=== PATIENT | female | born 1980 | race Caucasian/White ===

== ENCOUNTER 2021-10-02 06:57 | Emergency (ER) | payer BC, SELFPAY ==
[2021-10-02 06:58] VITALS: BP 156/73; PULSE 76; RESP 18; TEMP 37.2; O2SAT 99; BMI 32.6
[2021-10-02 07:01] VITALS: BP 156/78; PULSE 65; RESP 18; TEMP 37.2; O2SAT 97
--- NOTE | 2021-10-02 07:24 | RAD_ITS ---
STUDY: X-RAY CHEST REASON FOR EXAM: Female, 41 years old. cough,sob TECHNIQUE: AP COMPARISON: 09/29/2012 FINDINGS: Left subclavian chest port identified with tip projecting over the upper SVC. The lungs are clear and expanded. There is no demonstrated pleural abnormality. Normal size heart. Normal mediastinum and natalia. Normal visualized pulmonary arteries. Normal visualized aortic arch and descending thoracic aorta. Normal visualized thoracic spine. Normal visualized ribs, clavicles, and shoulders. There is no demonstrated abnormality of the visualized soft tissue structures of the upper abdomen. RAD/Chest 1 View (Portable) IMPRESSION: No airspace consolidation or pleural effusion. Electronically Signed: Pancho Lind MD ([place]) at 8:42 EST , Service support ,
--- NOTE | 2021-10-02 07:24 | ED.VIS.DYS ---
HPI History of Present Illness Chief Complaint: Shortness of Breath Informant: patient Onset/Context/Timing Onset: Days (1-2) Context: gradual and onset Quality: Positive for Wheezing Current Severity: Mild Maximum Severity: Mild Worsened by: Coughing Relieved by: Not Relieved By Albuterol Associated Symptoms cough; Negative for fever, sore throat, clear sputum, white sputum, yellow sputum or green sputum Chest Pain: Positive for None Narrative Narrative: Coughing w/o sputum, some lung burning and mild sob when not coughing, mild wheezing, did not improve with a nebulizer tx of albuterol at home. Staying at a hotel locally, visiting her kids, and has been sitting in hot tub at hotel, which bleached her swimming suit and smelled like it had a high level of chemicals in it, although did not get actively worse while smelling the chemicals. Now having trouble coughing but has no other symptoms other than mild dyspnea. Does not feel like she is sick. States she has chronic lung issues from chemotherapy tx for colon ca, which is in remission. No recent leg swelling. [facility] Medical History Colon cancer DDD (degenerative disc disease) Port-A-Cath in place Home Medications NK 10/02/21 [History Last Taken Unknown] Allergy/AdvReac Type Severity Reaction Status Date / Time sulfamethoxazole Allergy Unknown Verified 10/02/21 07:00 [From ] trimethoprim [From ] Allergy Unknown Verified 10/02/21 07:00 codeine AdvReac Other Verified 10/02/21 07:00 Surgical History (Updated 10/02/21 @ 07:04 by Bertha Fields) History of cholecystectomy Hx of tubal ligation Social History Smoking Status: Current every day smoker tobacco type: cigarettes ROS ROS ED Constitutional Constitutional ED: Denies chills or fever(s) Eyes Eyes: Denies change in vision or diplopia ENT ENT ED: Denies rhinorrhea or sore throat Cardiovascular Cardiovascular: Denies chest pain or palpitations Respiratory/Chest Respiratory/Chest: Reports as per HPI, cough, dyspnea and wheezing Gastrointestinal Gastrointestinal: Reports other Details: mild chronic abd pains since colon cancer ; Denies diarrhea, nausea or vomiting Genitourinary Genitourinary ED: Denies dysuria or hematuria Musculoskeletal Musculoskeletal: Denies back pain or neck pain Integumentary Denies abscess or rash Neurologic Neurologic: Denies headache(s), paresthesias or weakness Psychiatric Psychiatric: Denies anxiety or suicidal thoughts EXAM Physical Exam Const Vital Signs: 10/02/21 06:58 10/02/21 07:01 10/02/21 08:45 Temperature 98.9 F 98.9 F Temperature Source Oral Oral Pulse Rate 76 65 Respiratory Rate 18 18 Respiratory Effort Normal Non-Labored Respiratory Depth Normal Respiratory Pattern Normal Blood Pressure 156/73 H 156/78 H Blood Pressure Mean 100 104 Pulse Ox 99 97 Oxygen Delivery Method Room Air Room Air Room Air Positive well nourished, well developed and obese General Appearance ED: well developed and NAD Nutritional Appearance: obese HEENT Reports moist mucous membranes normocephalic and atraumatic Eyes PERRL and EOMs intact bilaterally Neck full ROM and supple Resp normal respiratory effort and clear to auscultation bilaterally Resp Narrative: conversive in full sentences w/o difficulty. frequent nonproductive coughing. NO secretions. Cardio regular rate, regular rhythm and no murmurs GI non-tender and non-distended Auscultation: normoactive bowel sounds Palpation: soft Back/Spine no CVA tenderness General Back: other FROM Extremity normal to inspection and no calf tenderness General Extremety ED: Negative for edema, pulses abnormal or tenderness General Extremity: Negative for edema or pulses abnormal Neuro oriented x3, CN's II-XII intact bilaterally and no sensory deficits noted Sensorium / Orientation: awake and alert Motor Exam: strength 5/5 throughout Skin no rashes or lesions noted and no wounds MDM MDM MDM Narrative Medical decision making narrative: CXR 1 view on my interpretation is normal. rapid covid swab is negative. She was offered a prescription for an antitussive but declines. 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 I discussed her chronic lung issues which she termed as chronic pneumosis, I told her that's not a medical diagnosis I've ever heard of; she Googled it and showed me a page on chemical pneumonitis, which certainly is in the DDx for her acute cough, for which supportive care is indicated and not routine use of steroids, especially in this clinical scenario. Therefore, she is given a duonebulizer tx and a dose of tessalon 200mg. Radiography Diagnostic Testing: Clinical Impression(s) from Imaging Studies Chest X-Ray 10/02/21 07:24 IMPRESSION: No airspace consolidation or pleural effusion. Electronically Signed: Pancho Lind MD ([place]) at 8:42 EST , Service support , Discharge Plan Triage Chief Complaint: Shortness of Breath ED Provider: Leonid Ibrahim Dx/Rx/DC Orders Clinical Impression: Acute cough, Acute bronchospasm Instructions: ED Bronchospasm (Adult) Prescriptions: No Action NK RF: 0 Primary Care Provider: Care Physician,No Primary Referrals: Care Physician,No Primary [Primary Care Provider] - Doctor,Your [STAFF PHYSICIAN] - As Needed Disposition Disposition: Home, Self Care
[2021-10-02] MEDS: Ipratropium/Albuterol Sulfate 3 ML AMPUL.NEB INHALATION (09:03)
[2021-10-02 09:04] VITALS: PULSE 70; RESP 23
[2021-10-02] MEDS: Benzonatate 100 MG Capsule 200 MG PO (09:45)
--- NOTE | 2021-10-02 09:47 | CM.ED ---
SW Note SW attempted to speak to patient as she has no PCP however, patient had been discharged prior to this typewriter ribbon winder speaking to her. Janny MARINELLI
[2021-10-02 10:14] VITALS: O2SAT 94
== END 2021-10-02 09:45 | disposition home or self-care (01) ==
PROVIDERS: Emergency Provider Emergency Medicine
DX: J98.01 Acute bronchospasm (principal); R05.1 Acute cough; F17.210 Nicotine dependence, cigarettes, uncomplicated; E66.9 Obesity, unspecified; Z85.038 Personal history of other malignant neoplasm of large intestine
CPT/HCPCS: 71045; 87426; 94640; 99283